=== PATIENT | male | born 1965 | race Two or more races ===

== ENCOUNTER 2018-02-08 14:13 | Emergency (ER) ==
[2018-02-08] MEDS: EPINEPHRINE 1:10,000 SYRINGE IV PRN ×5 (14:13→14:26)
[2018-02-08] MEDS ORDERED: ATROPINE SULFATE PFS IVP PRN (14:23)
[2018-02-08] MEDS ORDERED: SODIUM BICARBONATE 7.5% IVP PRN (14:23)
[2018-02-08] MEDS ORDERED: CORDARONE IVP PRN (14:23)
[2018-02-08 14:31] VITALS: BP 0/0; TEMP 94.7
[2018-02-08 14:34] VITALS: BMI 26.8
--- NOTE | 2018-02-08 14:45 | DI ---
Exam: Single x-ray of the chest. Comparison: None available. Reason for exam: Intubation. FINDINGS: No pneumothorax, pleural effusion, or focal consolidation. Endotracheal tube is seen with in the right mainstem bronchus. A pacing pad is seen overlying the left upper abdomen. The cardiac silhouette is not enlarged. Patchy airspace opacities consistent with atelectasis or pneumonia Impression: 1. Right mainstem bronchus intubation. 2. Patchy airspace opacities consistent with atelectasis or pneumonia. Technologist note states the patient is . Report faxed at [phone] hours on 02/08/2018.
--- NOTE | 2018-02-08 14:52 | ED.PDOC ---
General ED Provider: Dr. MATHIEU BERUMEN Chief Complaint: Cardiac Arrest Stated Complaint: 52 y/o white male brought to ER from [employer] where he was working and was witnessed to collapse.Found in Full Cardiac Arrest. Was treated there --Shocked with AED X 2 without response. Paramedeics arrieved and initiated definitive ACLS therapy and transported to ER in [facility] ARREST/. Was in document PEA during CODE prior to arrival and noted to have Fixed Dilated pupils. Time Seen by Physician: 14:09 Mode of Arrival: Ambulance Information Source: EMT Referred to ED by: Other Nursing and Triage Documentation Reviewed and Agree: Yes Reviewed sepsis parameters & appropriate labs ordered?: No (NI) System Inflammatory Response Syndrome: Not Applicable Sepsis Protocol: For patient's 13 years and over: Temp is 96.8 and below OR 101 and greater Pulse >90 BPM Resp >20/minute Acutely Altered Mental Status Are patient's symptoms suggestive of a new infection, such as: -Pneumonia -Skin, Soft Tissue -Endocarditis -UTI -Bone, Joint Infection -Implantable Device -Acute Abdominal Infection -Wound Infection -Meningitis -Blood Stream Catheter Infection -Unknown System Inflammatory Response Syndrome: Not Applicable Cardiac Resuscitation - Cardiac Resuscitation/Physical Exam Onset/Duration: Prior to arrival Witnessed Arrest: Yes Airway Prehospital Findings: Reports: Patent Breathing Prehospital Findings: Reports: Apnea Circulation/Rhythm Prehospital Findings: Reports: Pulses absent, PEA Disability/Neurological Prehospital Findings: Reports: Unresponsive Breathing Prehospital Intervention: Reports: Oxygen, Bag-valve mask, Intubation Circulation/Rhythm Prehospital Intervention: Reports: Chest compressions, Defibrillated, IV/IO placed, Epinephrine Breathing Prehospital Response: Present: ETT in airway, Equal breath sounds Circulation/Rhythm Prehospital Response: Present: Pulses absent, PEA. Absent: Pulses present Airway ED Findings: Patent Breathing ED Findings: Present: Apnea Circulation/Rhythm ED Findings: Present: Pulses absent, PEA Disability/Neurological ED Findings: Present: Unresponsive Breathing ED Intervention: Oxygen, ETT repositioned Circulation/Rhythm ED Intervention: Chest compressions, Epinephrine Breathing ED Response: ETT in airway, Equal breath sounds, Confirmed by auscultation, Confirmed by CO2 detector Circulation/Rhythm ED Response: Present: Pulses absent Right Pupil: Fixed, Dilated Left Pupil: Fixed, Dilated EMS/Code Sheet Reviewed: Yes Patient is a DNR: No Resuscitation Successful: No Terminated At: 1428 Differential Diagnoses: Acute IN, Card. Rhythm Disturbance, PEA Past Medical History - Past Medical History Previously Healthy: Yes Endocrine: Reports: None Cardiovascular: Reports: Unknown Respiratory: Reports: Unknown Hematological: Reports: Unknown Gastrointestinal: Reports: Unknown Genitourinary: Reports: Unknown Neuro/Psych: Reports: Unknown Musculoskeletal: Reports: Unknown Cancer: Reports: Unknown - Surgical History General Surgical History: Reports: Unknown - Family History Family History: Reports: Unknown - Social History Smoking Status: Unknown if ever smoked Alcohol Screening: None Pt Occupation: [employer] Lives: With family Interpretation - Radiology Interpretation Radiology Interpretation By: Radiologist Radiology Results: Positive (atelectasis /Rt Mainstem Bronchus Intubation) Exam Interpreted: Portable CXR Xray Comments: patchy airspace abnorm/rt mainstem bronch intubation Radiology Results: Positive Exam Interpreted: Portable CXR Critical Care Note - Critical Care Note Total Time (mins): 20 Course - Course Hematology/Chemistry: 02/08/18 14:20 02/08/18 14:20 Orders, Labs, Meds: Lab Review 02/08/18 02/08/18 14:20 14:20 WBC 10.39 H RBC 4.18 L Hgb 14.4 Hct 42.9 MCV 102.6 H MCH 34.4 H MCHC 33.6 RDW Coeff of [place] 12.0 Plt Count 171 Immature Gran % (Auto) 2.2 Neut % (Auto) 44.0 Lymph % (Auto) 46.0 [place] % (Auto) 7.0 Eos % (Auto) 0.3 Baso % (Auto) 0.5 Immature Gran # (Auto) 0.2 Neut # (Auto) 4.6 Lymph # (Auto) 4.8 H [place] # (Auto) 0.7 Eos # (Auto) 0.0 Baso # (Auto) 0.1 Sodium 145 Potassium 4.1 Chloride 104 Carbon Dioxide 13 L Anion Gap 32.1 BUN 10 Creatinine 1.71 H Estimated GFR (MDRD) 42.00 BUN/Creatinine Ratio 5.84 Glucose 198 H Calcium 9.6 Total Bilirubin 0.6 AST 66 H ALT 72 Alkaline Phosphatase 67 Total Creatine Kinase 219 CK-MB (CK-2) 5.9 H* CK-MB (CK-2) % 2.28755 Troponin I 1.6570 H* Total Protein 6.3 L Albumin 3.5 Globulin 2.8 Albumin/Globulin Ratio 1.25 Orders Category Date Time Status CPR - ED ONLY Stat CARDIO 02/08/18 14:23 Completed EKG-(ED ONLY) Stat CARDIO 02/08/18 14:24 Completed ED [employer] APPLIED .ONCE EMERGENCY 02/08/18 14:23 Active ED IV/MEDIPORT/POWERPORT .ONCE EMERGENCY 02/08/18 14:23 Active CBC W/ AUTO DIFF Stat LAB 02/08/18 14:20 Completed COMPREHENSIVE METABOLIC PANEL Stat LAB 02/08/18 14:20 Completed CREATINE KINASE Stat LAB 02/08/18 14:20 Completed TROPONIN I Stat LAB 02/08/18 14:20 Completed 0.9 % Sodium Chloride [Saline Flush] MEDS 02/08/18 14:23 Discontinued 1 syr IVF PRN PRN Amiodarone HCl Inj [Cordarone] MEDS 02/08/18 14:23 Discontinued 150 - 300 mg IVP PRN PRN Atropine Sulfate Inj [Atropine Sulfate Pfs] MEDS 02/08/18 14:23 Discontinued 1 mg IVP PRN PRN Epinephrine [Epinephrine 1:10,000 Syringe] MEDS 02/08/18 14:23 Discontinued 1 mg IV PRN PRN Sodium Bicarb 7.5% [Sodium Bicarbonate 7.5%] MEDS 02/08/18 14:23 Discontinued 44.6 meq IVP PRN PRN CHEST, 1V AP ONLY Stat RADS 02/08/18 14:24 Completed Medications Discontinued Medications Generic Name Dose Route Start Last Admin Trade Name Freq PRN Reason Stop Dose Admin Amiodarone HCl 150 - 300 mg 02/08/18 14:23 Cordarone IVP PRN PRN DIRECTED BY PHYSICIAN-CODE Atropine Sulfate 1 mg 02/08/18 14:23 Atropine Sulfate Pfs IVP PRN PRN DIRECTED BY PHYSICIAN-CODE Epinephrine HCl 1 mg 02/08/18 14:23 02/08/18 14:26 Epinephrine 1:10,000 Syringe IV 1 mg PRN PRN Administration DIRECTED BY PHYSICIAN-CODE Sodium Bicarbonate 44.6 meq 02/08/18 14:23 Sodium Bicarbonate 7.5% IVP PRN PRN DIRECTED BY PHYSICIAN-CODE Sodium Chloride 1 syr 02/08/18 14:23 Saline Flush IVF PRN PRN To flush IV Vital Signs: Temp Pulse Resp BP Pulse Ox 02/08/18 14:24 94.7 F L 0 L 0 L 0/0 L 50 L Departure - Departure Time of Disposition: 17:15 Disposition: Discharge Problem: Cardiac arrest, PEA (Pulseless electrical activity) Condition: Pt referred to PMD for follow-up: No (Patient ) IPMP verified?: No (N.I) Disposition Discussed With: Family (Reviewed case with patient ), Other ( discussed case with patients )
== END 2018-02-08 16:45 | disposition expired ==
LOC: ED 14:13
DX: I46.9 Cardiac arrest, cause unspecified (principal)
CPT/HCPCS: 36415; 80053; 82550; 82553; 84484; 85025; 93005; 93010; 96374; 99291